=== PATIENT | male | born 1995 | race Caucasian/White ===

== ENCOUNTER 2021-11-27 09:22 | Emergency (ER) | payer BC | END 2021-11-27 11:03 | disposition home or self-care (01) | LOC: FB.ED 09:22 | DX: S61.412A Laceration without foreign body of left hand, initial encounter (principal); E66.9 Obesity, unspecified; Z68.41 Body mass index [BMI] 40.0-44.9, adult; Z88.0 Allergy status to penicillin; Z87.891 Personal history of nicotine dependence; W26.0XXA Contact with knife, initial encounter | CPT/HCPCS: 12001; 99281; 99282-25 ==